=== PATIENT | female | born 1975 | race African-American/Black ===

== ENCOUNTER 2025-10-14 18:35 | Emergency (ER) | payer MEDICAID ==
[~2025-10-14] VITALS: Ht 167.6 cm; Wt 73.0 kg
[2025-10-14 18:40] VITALS: O2SAT 99
[2025-10-14] MEDS: ACETAMINOPHEN 325MG TABLET PO ONE (18:59)
[2025-10-14] MEDS: TETANUS, DIPHTHERIA, PERTUSSIS VAC/PF 0.5ML (>10YR OLD) IM ONE (19:58)
[2025-10-14] MEDS: KETOROLAC 15MG/ML VIAL IM ONE (19:58)
[2025-10-14] MEDS: LIDOCAINE HCL/EPINEPHRINE 1%-EPI 1:100,000 20ML VIAL INFIL ONE (21:00)
[2025-10-14] MEDS: AMOXICILLIN/POTASSIUM CLAVULANATE 875/125MG TAB PO ONE (22:49)
[2025-10-14] MEDS ORDERED: AMOX1TAB16 MT (22:59)
[2025-10-14 23:30] VITALS: BP 123/75; PULSE 54; RESP 12; TEMP 36.6; O2SAT 99
== END 2025-10-14 23:30 | disposition home or self-care (01) ==
LOC: ER 18:35
DX: S92.312A Displaced fracture of first metatarsal bone, left foot, initial encounter for closed fracture (principal); V18.4XXA Pedal cycle driver injured in noncollision transport accident in traffic accident, initial encounter; Y93.55 Activity, bike riding; Y92.89 Other specified places as the place of occurrence of the external cause; Y99.8 Other external cause status
CPT/HCPCS: 99285; 10120; 81025; 73630; 90715; 90471; 96372; J1885; J2004; 12001